=== PATIENT | female | born 1960 | race Caucasian/White ===

== ENCOUNTER 2017-07-23 07:54 | Inpatient (IN) | payer MEDICAID, OTHER ==
[~2017-07-23] VITALS: Ht 162.6 cm; Wt 70.7 kg
[~2017-07-23 07:54] MED LIST: LORA-446 PO; OMEP40CA6 PO; ativan
[2017-07-23] MEDS ORDERED: PANTOPRAZOLE 80 MG in SODIUM CHLORIDE 0.9% 50 ML IVPB ONE (08:06)
[2017-07-23] MEDS ORDERED: PANTOPRAZOLE 80 MG in SODIUM CHLORIDE 0.9% 100 ML IV SCH (08:06)
[2017-07-23] MEDS ORDERED: MAGNESIUM SULFATE 1 GM, THIAMINE 100 MG, FOLIC ACID 1 MG, MVI ADULT 10 ML in SODIUM CHL... IV ONE (08:30)
[2017-07-23] MEDS ORDERED: SODIUM CHLORIDE 0.9% 1,000ML IVBOLUS ONE ×2 (08:30→11:30)
[2017-07-23] MEDS ORDERED: SODIUM CHLORIDE FLUSH 10ML SYR IVF ONE (08:30)
[2017-07-23] MEDS ORDERED: LORazepam 2 MG/ML, 1ML IVPush ONE (08:30)
[2017-07-23] MEDS ORDERED: ONDANSETRON 2MG/ML, 2ML IVPush ONE (08:30)
[2017-07-23] MEDS ORDERED: PLEASE ENTER HEIGHT AND WEIGHT MC SCH (08:30)
[2017-07-23 08:58] LABS: HEMATOCRIT 46.5 % (34.6-47.8); HEMOGLOBIN 15.9 g/dL (11.7-16.4); WHITE BLOOD COUNT 12.5 x10^3/uL (3.4-10)
[2017-07-23 09:08] LABS: ASPARTATE AMINO TRANSFERASE 52 U/L (15-37); BLOOD UREA NITROGEN 10 mg/dL (7-18)
[2017-07-23] MEDS ORDERED: ONDANSETRON 2MG/ML, 2ML ONE (09:13)
[2017-07-23] MEDS ORDERED: LORazepam 2 MG/ML, 1ML ONE (09:14)
[2017-07-23 12:34] VITALS: BP 136/85
[2017-07-23] MEDS: SODIUM CHLORIDE 0.9% 1,000 ML IV SCH (13:15)
[2017-07-23] MEDS ORDERED: ONDANSETRON 2MG/ML, 2ML IVPush PRN (13:30)
[2017-07-23] MEDS ORDERED: MORPHINE SULFATE 4 MG/ML, 1ML IVPush PRN (13:30)
[2017-07-23] MEDS ORDERED: PROMETHAZINE 25 MG/ML, 1ML IM PRN (13:30)
[2017-07-23] MEDS: DEXTROSE IV SCH (14:30)
[2017-07-23] MEDS: THIAMINE IV SCH (14:30)
[2017-07-23] MEDS: MVI ADULT IV SCH (14:30)
[2017-07-23] MEDS ORDERED: LORazepam 2 MG/ML, 1ML IV PRN ×3 (14:30)
[2017-07-23 15:10] VITALS: BP 148/93
[2017-07-23 16:12] LABS: HEMATOCRIT 43.9 % (34.6-47.8); HEMOGLOBIN 14.8 g/dL (11.7-16.4)
[2017-07-23] MEDS: PANTOPRAZOLE 80 MG in SODIUM CHLORIDE 0.9% 100 ML IV SCH (18:17)
[2017-07-23 20:00] VITALS: BP 139/69
[2017-07-23] MEDS: SUCRALFATE 1 GM/10 ML UDC PO SCH (20:31)
[2017-07-23] MEDS: LORazepam 2 MG/ML, 1ML IV PRN (20:31)
[2017-07-23 21:06] LABS: HEMATOCRIT 37.7 % (34.6-47.8); HEMOGLOBIN 12.9 g/dL (11.7-16.4)
[2017-07-24] MEDS: SODIUM CHLORIDE 0.9% 1,000 ML IV SCH ×2 (01:44→23:00)
[2017-07-24 02:00] VITALS: BP 128/82
[2017-07-24] MEDS: PANTOPRAZOLE 80 MG in SODIUM CHLORIDE 0.9% 100 ML IV SCH (04:34)
[2017-07-24 05:27] LABS: ASPARTATE AMINO TRANSFERASE 39 U/L (15-37); BLOOD UREA NITROGEN 7 mg/dL (7-18)
[2017-07-24] MEDS: LORazepam 2 MG/ML, 1ML IV PRN ×5 (05:57→20:53)
[2017-07-24 07:50] VITALS: BP 131/81
[2017-07-24 08:31] LABS: HEMATOCRIT 39.8 % (34.6-47.8); HEMOGLOBIN 13.6 g/dL (11.7-16.4)
[2017-07-24] MEDS: FOLIC ACID 1 MG TABLET PO SCH (08:40)
[2017-07-24] MEDS: SUCRALFATE 1 GM/10 ML UDC PO SCH ×4 (08:41→20:53)
[2017-07-24] MEDS: OMEPRAZOLE 20 MG CAPSULE.DR PO SCH (08:41)
[2017-07-24 10:58] LABS: HEMATOCRIT 38.6 % (34.6-47.8); HEMOGLOBIN 13.1 g/dL (11.7-16.4)
[2017-07-24] MEDS: DEXTROSE IV SCH (11:50)
[2017-07-24] MEDS: MVI ADULT IV SCH (11:50)
[2017-07-24] MEDS: THIAMINE IV SCH (11:50)
[2017-07-24] MEDS ORDERED: POTASSIUM PHOSPHATE 44 MEQ in SODIUM CHLORIDE 0.9% 500 ML IV ONE (13:00)
[2017-07-24 14:07] VITALS: BP 144/83
[2017-07-24] MEDS: PANTOPROZOLE 40MG TABLET PO SCH ×2 (14:11→20:52)
[2017-07-24 16:22] LABS: HEMATOCRIT 40.6 % (34.6-47.8); HEMOGLOBIN 13.9 g/dL (11.7-16.4)
[2017-07-24 20:00] VITALS: BP 122/71
[2017-07-24 21:43] LABS: HEMATOCRIT 39.6 % (34.6-47.8); HEMOGLOBIN 13.5 g/dL (11.7-16.4)
[2017-07-25] MEDS: LORazepam 2 MG/ML, 1ML IV PRN ×2 (00:34→02:47)
[2017-07-25 02:00] VITALS: BP 144/86
[2017-07-25] MEDS: SODIUM CHLORIDE 0.9% 1,000 ML IV SCH (02:52)
[2017-07-25 06:10] LABS: HEMATOCRIT 39.7 % (34.6-47.8); HEMOGLOBIN 13.5 g/dL (11.7-16.4); WHITE BLOOD COUNT 6.9 x10^3/uL (3.4-10)
[2017-07-25 06:20] LABS: ASPARTATE AMINO TRANSFERASE 43 U/L (15-37); BLOOD UREA NITROGEN 2 mg/dL (7-18)
[2017-07-25] MEDS ORDERED: POTASSIUM CHLORIDE 40 MEQ in SODIUM CHLORIDE 0.9% 500 ML IV ONE (07:30)
[2017-07-25] MEDS ORDERED: MAGNESIUM SULFATE PMX 2GM/50ML 50 ML IV ONE (07:30)
[2017-07-25 07:37] VITALS: BP 142/85
[2017-07-25] MEDS ORDERED: POTASSIUM CHLORIDE 20 MEQ TAB.ER.PRT PO SCH (08:00)
[2017-07-25] MEDS: FOLIC ACID 1 MG TABLET PO SCH (08:32)
[2017-07-25] MEDS: SUCRALFATE 1 GM/10 ML UDC PO SCH ×2 (08:32→12:53)
[2017-07-25] MEDS: PANTOPROZOLE 40MG TABLET PO SCH (08:32)
[2017-07-25] MEDS: OMEPRAZOLE 20 MG CAPSULE.DR PO SCH (08:32)
[2017-07-25] MEDS ORDERED: LORazepam 0.5MG TABLET PO PRN (09:00)
[2017-07-25] MEDS ORDERED: LORazepam 1MG TABLET PO PRN ×4 (09:00)
[2017-07-25 11:13] LABS: HEMATOCRIT 41.5 % (34.6-47.8); HEMOGLOBIN 14.2 g/dL (11.7-16.4)
[2017-07-25] MEDS ORDERED: THIAMINE 100MG TABLET PO SCH (11:30)
[2017-07-25] MEDS ORDERED: MULTIVITAMIN 1 TABLET PO SCH (11:30)
[2017-07-25] MEDS ORDERED: POTASSIUM CHLORIDE 20 MEQ in SODIUM CHLORIDE 0.9% 1,000 ML IV SCH (13:15)
[2017-07-25 14:50] VITALS: BP 127/82
== END 2017-07-25 17:00 | disposition left against medical advice (07) | DRG 378 ==
LOC: ED 08:56 → EDIP 09:14 → 4EST 11:29
PROVIDERS: ADMIT Hospitalist; ATTEND Internal Medicine
DX: K92.2 Gastrointestinal hemorrhage, unspecified (principal); R65.10 Systemic inflammatory response syndrome (SIRS) of non-infectious origin without acute organ dysfunction; E87.1 Hypo-osmolality and hyponatremia; E83.39 Other disorders of phosphorus metabolism; K22.10 Ulcer of esophagus without bleeding; F10.239 Alcohol dependence with withdrawal, unspecified; B18.2 Chronic viral hepatitis C; D50.0 Iron deficiency anemia secondary to blood loss (chronic); K22.6 Gastro-esophageal laceration-hemorrhage syndrome; D72.829 Elevated white blood cell count, unspecified; E87.6 Hypokalemia; F17.210 Nicotine dependence, cigarettes, uncomplicated; F41.9 Anxiety disorder, unspecified; G40.909 Epilepsy, unspecified, not intractable, without status epilepticus; I10 Essential (primary) hypertension; K21.9 Gastro-esophageal reflux disease without esophagitis; Z87.11 Personal history of peptic ulcer disease; Z87.19 Personal history of other diseases of the digestive system
CPT/HCPCS: 36415; 71010; 80053; 80307; 81001; 83690; 83735; 84100; 85014; 85018; 85025; 85610; 86850; 86900; 93005; 96361; 96374; 96375; J2405; J3411; J3475; J3480; J7070; C9113; G0479; J2060; J7030; J7040